=== PATIENT | female | born 1990 | race African-American/Black ===

== ENCOUNTER 2018-02-17 13:25 | Emergency (ER) | payer OTHER ==
[~2018-02-17] VITALS: Ht 162.6 cm; Wt 128.8 kg
[~2018-02-17 13:25] MED LIST: ACETAMINOPHEN325 M1 PO; MACROBID 100 M100 M1 PO; PRENA1 CHEW TABL1 MG PO; ZOFRAN4 MG PO
[2018-02-17 13:36] VITALS: BP 153/86
[2018-02-17] MEDS ORDERED: ULTRAM 50MG TAB50 MG PO (13:49)
== END 2018-02-17 14:00 | disposition home or self-care (01) ==
LOC: ER 13:25
DX: K08.89 Other specified disorders of teeth and supporting structures (principal)